=== PATIENT | male | born 1980 | race Hispanic/Latino ===

== ENCOUNTER 2023-01-02 22:52 | Inpatient (IN) | payer SELFPAY ==
[2023-01-03 00:02] LABS: Reflex for Review?? YES
[2023-01-03 00:03] LABS: Hemoglobin 4.5 g/dL (14.0-18.0); Mean Corpuscular HGB CONC 29.8 g/dL (32.0-36.0); Mean Corpuscular Hemoglobin 22.9 pg (27.0-31.0); Mean Corpuscular Volume 76.6 fl (78.0-98.0); Mean Platelet Volume 9.3 fL (7.4-10.4); Platelet Count 159 10x3/uL (130-400); RBC Distribution Width 19.1 % (11.5-14.5); Red Blood Cell (RBC) Count 1.97 mill/uL (4.70-6.10)
[2023-01-03 00:15] LABS: ALT (SGPT) 24 U/L (8-55); AST (SGOT) 47 U/L (5-34); Alkaline Phosphatase 329 U/L (40-110); Anion Gap 12 mmol/L (10-20); BUN (Urea Nitrogen) 7 mg/dL (8.9-20.6); Bilirubin, Total 2.8 mg/dL (0.2-1.2); Calc. Creatinine Clearance 0 mL/min (70-130); Calcium 7.6 mg/dL (7.8-10.44); Carbon Dioxide 19 mmol/L (22-29); Chloride 109 mmol/L (98-107); Estimated GFR 107; Globulin 6.5 g/dL (2.4-3.5); Glucose 145 mg/dL (70-105); Potassium 3.6 mmol/L (3.5-5.1); Protein, Total 8.5 g/dL (6.0-8.3); Sodium 136 mmol/L (136-145)
[2023-01-03 00:21] LABS: #Eosinphils 0.2 thou/uL (0.0-0.7); #Lymphocytes 1.2 thou/uL (1.20-3.40); #Monocytes 0.8 thou/uL (0.11-0.59); #Neutrophils 3.8 thou/uL (1.40-6.50); %Basophils 0.2 % (0.0-1.0); %Eosinophils 3.5 % (0.0-10.0); %Lymphocytes 20.7 % (21.0-51.0); %Monocytes 12.8 % (0.0-10.0); %Neutrophils 62.8 % (42.0-75.0)
[2023-01-03 00:22] LABS: Anisocytosis SLIGHT = 6-15 cells (100X) (0-5/hpf); Hypochromia SLIGHT = 6-15 cells (100X) (0-5/hpf); MDiff Complete? YES; Microcytosis SLIGHT = 6-15 cells (100X) (0-5/hpf); Rouleaux Formation SLIGHT = 1-5 cells (100X) (None Seen)
[2023-01-03 00:27] LABS: Bilirubin Negative (Negative); Blood, Urine Negative (Negative); Clarity Clear (Clear); Glucose, Urine (Dipstick) Normal (Negative); Ketone, Urine Trace mg/dL (Negative); Leukocyte Negative Leu/uL (Negative); Nitrite Negative (Negative); Protein, Urine (Dipstick) 10 mg/dL (Neg-Trace); Urobilinogen 12 mg/dL (Less than 2); pH, Urine 6.5 (5.0-9.0)
[2023-01-03] MEDS ORDERED: Senokot S 8.6-50 MG TAB PO PRN (01:47)
[2023-01-03] MEDS ORDERED: Calcium Carbonate 500 MG ChewTAB PO PRN (01:47)
[2023-01-03] MEDS ORDERED: Ondansetron ODT 4 MG TAB PO PRN (01:49)
[2023-01-03] MEDS ORDERED: Lorazepam 1 MG TAB PO PRN (01:49)
[2023-01-03] MEDS ORDERED: Lorazepam 2 MG/ML VIAL IM PRN (01:49)
[2023-01-03] MEDS ORDERED: Electrolyte Replacement Protocol 1 EACH FS SCH (02:00)
[2023-01-03 02:10] LABS: INR-International Normal Ratio 1.7; PTT 44.8 sec (22.9-36.1); Prothrombin Time 20.6 sec (12.0-14.7)
[2023-01-03 02:19] LABS: Cardiac Risk 8.7 (Less than 4.5); Cholesterol 104 mg/dl (< 200 Desired); HDL Cholesterol 12 mg/dL (>60 Neg Risk); LDL Cholesterol, Calculated 74 mg/dL; Magnesium 1.7 mg/dL (1.6-2.6); Phosphorus 3.4 mg/dL (2.3-4.7); Triglycerides 92 mg/dL (Less than 150)
[2023-01-03 03:42] VITALS: BMI 27.9
[2023-01-03] MEDS: Lorazepam 1 MG TAB PO SCH ×3 (04:08→14:25)
[2023-01-03] MEDS: Thiamine HCl 200 MG/2 ML VIAL SLOW IVP SCH (04:08)
[2023-01-03] MEDS: Acetaminophen 325 MG TAB PO PRN ×2 (05:13→09:07)
[2023-01-03] MEDS: Albumin 25% 25 GM/100 ML BOT IVPB SCH ×4 (05:14→23:25)
[2023-01-03] MEDS ORDERED: Magnesium 2 GM/50 ML(in water) 2 GM in Premix Bag 1 BAG IVPB SCH (08:00)
[2023-01-03] MEDS: Multivit, Therapeutic 1 TAB PO SCH (08:52)
[2023-01-03] MEDS: Folic Acid 1 MG TAB PO SCH (08:52)
[2023-01-03] MEDS ORDERED: Pantoprazole 40 MG VIAL IVP SCH (09:00)
[2023-01-03] MEDS ORDERED: Furosemide 40 MG TAB PO SCH (11:00)
[2023-01-03] MEDS ORDERED: Spironolactone 100 MG TAB PO SCH (11:00)
[2023-01-03] MEDS: hydrALAZINE 20 MG/ML VIAL SLOW IVP PRN (14:34)
[2023-01-03 15:44] LABS: #Eosinphils 0.1 thou/uL (0.0-0.7); #Monocytes 0.6 thou/uL (0.11-0.59); #Neutrophils 3.8 thou/uL (1.40-6.50); %Basophils 0.8 % (0.0-1.0); %Eosinophils 1.4 % (0.0-10.0); %Lymphocytes 18.3 % (21.0-51.0); %Monocytes 10.6 % (0.0-10.0); %Neutrophils 68.9 % (42.0-75.0); Hemoglobin 6.7 g/dL (14.0-18.0); Mean Corpuscular HGB CONC 31.2 g/dL (32.0-36.0); Mean Corpuscular Hemoglobin 25.6 pg (27.0-31.0); Mean Corpuscular Volume 82.1 fl (78.0-98.0); Mean Platelet Volume 9.1 fL (7.4-10.4); Platelet Count 138 10x3/uL (130-400); RBC Distribution Width 19.3 % (11.5-14.5); Red Blood Cell (RBC) Count 2.61 mill/uL (4.70-6.10); White Blood Cell (WBC) Count 5.6 10x3/uL (4.8-10.8)
[2023-01-03 16:10] LABS: ALT (SGPT) 20 U/L (8-55); AST (SGOT) 38 U/L (5-34); Albumin 2.6 g/dL (3.5-5.0); Alkaline Phosphatase 283 U/L (40-110); Anion Gap 10 mmol/L (10-20); BUN (Urea Nitrogen) 7 mg/dL (8.9-20.6); Bilirubin, Total 7.7 mg/dL (0.2-1.2); Calc. Creatinine Clearance 152 mL/min (70-130); Carbon Dioxide 21 mmol/L (22-29); Chloride 109 mmol/L (98-107); Estimated GFR 115; Globulin 5.8 g/dL (2.4-3.5); Glucose 121 mg/dL (70-105); Potassium 3.4 mmol/L (3.5-5.1); Protein, Total 8.4 g/dL (6.0-8.3); Sodium 137 mmol/L (136-145)
[2023-01-03] MEDS ORDERED: cefTRIAXone\\ROCEPHIN 1 GM in Sodium Chloride 0.9% 100 ML IVPB SCH (16:15)
[2023-01-03 17:29] LABS: Amphetamine Not Detected (NotDetected); Barbiturates Screen Not Detected (NotDetected); Benzodiazepine Screen Not Detected (NotDetected); Cocaine Metabolite Screen Detected (NotDetected); Methadone Not Detected (NotDetected); Methamphetamine Not Detected (NotDetected); Opiate Screen Not Detected (NotDetected); Oxycodone Screen Not Detected (NotDetected); Phencyclidine (PCP) Not Detected (NotDetected); THC/Cannabinoid Screen Not Detected (NotDetected); Tricyclic Screen Not Detected (NotDetected)
[2023-01-03] MEDS ORDERED: Lorazepam 2 MG/ML VIAL SLOW IVP SCH ×2 (18:15→19:00)
[2023-01-03 18:18] LABS: ALT (SGPT) 20 U/L (8-55); AST (SGOT) 40 U/L (5-34); Albumin 2.7 g/dL (3.5-5.0); Alkaline Phosphatase 304 U/L (40-110); Bilirubin, Direct 5.2 mg/dL (0.1-0.3); Protein, Total 8.9 g/dL (6.0-8.3)
[2023-01-03] MEDS: Sodium Chloride 0.9% 1,000 ML IV SCH (18:29)
[2023-01-03] MEDS ORDERED: Lorazepam 2 MG/ML VIAL SLOW IVP PRN (22:17)
[2023-01-03] MEDS: Potassium Chloride 20 MEQ in Premix Bag 1 BAG IVPB SCH (23:24)
[2023-01-04] MEDS: hydrALAZINE 20 MG/ML VIAL SLOW IVP PRN (01:10)
[2023-01-04] MEDS ORDERED: Lorazepam 2 MG/ML VIAL SLOW IVP SCH ×2 (01:15→03:15)
[2023-01-04] MEDS: Potassium Chloride 20 MEQ in Premix Bag 1 BAG IVPB SCH (01:16)
[2023-01-04] MEDS ORDERED: Lorazepam 2 MG/ML VIAL SLOW IVP PRN ×4 (01:19)
[2023-01-04] MEDS ORDERED: Ondansetron PF 4 MG/2 ML Vial IVP PRN (01:24)
[2023-01-04] MEDS ORDERED: Lorazepam 1 MG TAB PO PRN (01:49)
[2023-01-04 03:12] LABS: #Eosinphils 0.2 thou/uL (0.0-0.7); #Lymphocytes 1.2 thou/uL (1.20-3.40); #Monocytes 0.7 thou/uL (0.11-0.59); #Neutrophils 4.1 thou/uL (1.40-6.50); %Basophils 0.7 % (0.0-1.0); %Eosinophils 2.8 % (0.0-10.0); %Lymphocytes 19.6 % (21.0-51.0); %Monocytes 11.1 % (0.0-10.0); %Neutrophils 65.9 % (42.0-75.0); Mean Corpuscular HGB CONC 31.7 g/dL (32.0-36.0); Mean Corpuscular Hemoglobin 25.8 pg (27.0-31.0); Mean Corpuscular Volume 81.4 fl (78.0-98.0); Mean Platelet Volume 9.4 fL (7.4-10.4); Platelet Count 146 10x3/uL (130-400); RBC Distribution Width 19.4 % (11.5-14.5); Red Blood Cell (RBC) Count 2.69 mill/uL (4.70-6.10); White Blood Cell (WBC) Count 6.3 10x3/uL (4.8-10.8)
[2023-01-04] MEDS: Thiamine HCl 200 MG/2 ML VIAL SLOW IVP SCH (03:12)
[2023-01-04 03:49] LABS: Iron 226 ug/dL (65-175); Iron Binding Capacity, Total 208 mcg/dL (261-462); Magnesium 1.6 mg/dL (1.6-2.6); Phosphorus 2.6 mg/dL (2.3-4.7)
[2023-01-04 04:04] LABS: HBSAg Index 0.26 S/CO (0-0.99); Hep B Surf Ag Non-Reactive S/CO (NonReactive)
[2023-01-04 04:05] LABS: Hep C IgG Ab Non-Reactive S/CO (NonReactive); Hep C Index 0.36 S/CO (0-0.79)
[2023-01-04 04:07] LABS: HBCM Index 0.21 S/CO (0-0.79); Hepatitis B Core IgM Abs Non-Reactive S/CO (NonReactive)
[2023-01-04 04:08] LABS: Hep A IgM AB Reactive S/CO (NonReactive); Hep A IgM S/CO 1.36 S/CO (0-0.79)
[2023-01-04 04:17] LABS: Ferritin 130.93 ng/mL (22-322)
[2023-01-04] MEDS ORDERED: cefTRIAXone\\ROCEPHIN 1 GM in Sodium Chloride 0.9% 100 ML IVPB SCH (05:00)
[2023-01-04] MEDS: cefTRIAXone\\ROCEPHIN 1 GM in Sodium Chloride 0.9% 100 ML IVPB SCH (05:18)
[2023-01-04] MEDS: Lorazepam 2 MG/ML VIAL SLOW IVP SCH ×3 (05:33→17:05)
[2023-01-04] MEDS ORDERED: Lorazepam 1 MG TAB PO SCH (06:00)
[2023-01-04] MEDS ORDERED: Furosemide 40 MG TAB PO SCH (07:30)
[2023-01-04] MEDS ORDERED: Magnesium 2 GM/50 ML(in water) 2 GM in Premix Bag 1 BAG IVPB SCH (08:00)
[2023-01-04] MEDS ORDERED: Spironolactone 100 MG TAB PO SCH (08:00)
[2023-01-04 08:41] LABS: #Eosinphils 0.1 thou/uL (0.0-0.7); #Monocytes 0.7 thou/uL (0.11-0.59); #Neutrophils 5.1 thou/uL (1.40-6.50); %Basophils 0.2 % (0.0-1.0); %Neutrophils 74.8 % (42.0-75.0); Hemoglobin 6.8 g/dL (14.0-18.0); Mean Corpuscular HGB CONC 30.6 g/dL (32.0-36.0); Mean Corpuscular Hemoglobin 25.1 pg (27.0-31.0); Mean Platelet Volume 9.6 fL (7.4-10.4); Platelet Count 145 10x3/uL (130-400); RBC Distribution Width 19.7 % (11.5-14.5); Red Blood Cell (RBC) Count 2.73 mill/uL (4.70-6.10); White Blood Cell (WBC) Count 6.8 10x3/uL (4.8-10.8)
[2023-01-04] MEDS: Folic Acid 1 MG TAB PO SCH (09:03)
[2023-01-04] MEDS: Multivit, Therapeutic 1 TAB PO SCH (09:03)
[2023-01-04] MEDS: Sodium Chloride 0.9% 1,000 ML IV SCH (09:03)
[2023-01-04] MEDS: Pantoprazole 40 MG VIAL IVP SCH (09:03)
[2023-01-04 10:47] LABS: Syphilis Antibody Nonreactive (Nonreactive); Syphilis Antibody Index 0.14 S/CO (<1.00 Non-Reactive)
[2023-01-04 12:48] LABS: #Eosinphils 0.1 thou/uL (0.0-0.7); #Monocytes 0.9 thou/uL (0.11-0.59); #Neutrophils 6.2 thou/uL (1.40-6.50); %Basophils 0.5 % (0.0-1.0); %Eosinophils 0.8 % (0.0-10.0); %Lymphocytes 12.4 % (21.0-51.0); %Monocytes 11.2 % (0.0-10.0); %Neutrophils 75.1 % (42.0-75.0); Hemoglobin 6.7 g/dL (14.0-18.0); Mean Corpuscular HGB CONC 30.3 g/dL (32.0-36.0); Mean Corpuscular Hemoglobin 24.8 pg (27.0-31.0); Mean Corpuscular Volume 81.9 fl (78.0-98.0); Platelet Count 135 10x3/uL (130-400); RBC Distribution Width 19.8 % (11.5-14.5); Red Blood Cell (RBC) Count 2.69 mill/uL (4.70-6.10); White Blood Cell (WBC) Count 8.3 10x3/uL (4.8-10.8)
[2023-01-04] MEDS: Folic Acid 1 MG, Thiamine HCl 100 MG in Dextrose 5 %-0.45 % NaCl 1,000 ML FS SCH (17:06)
[2023-01-04 21:06] LABS: #Eosinphils 0.1 thou/uL (0.0-0.7); #Lymphocytes 1.3 thou/uL (1.20-3.40); #Monocytes 0.9 thou/uL (0.11-0.59); #Neutrophils 5.6 thou/uL (1.40-6.50); %Basophils 0.5 % (0.0-1.0); %Lymphocytes 16.1 % (21.0-51.0); %Monocytes 11.3 % (0.0-10.0); %Neutrophils 71.1 % (42.0-75.0); Hemoglobin 7.2 g/dL (14.0-18.0); Mean Corpuscular HGB CONC 32.3 g/dL (32.0-36.0); Mean Corpuscular Hemoglobin 26.7 pg (27.0-31.0); Mean Corpuscular Volume 82.8 fl (78.0-98.0); Mean Platelet Volume 8.9 fL (7.4-10.4); Platelet Count 131 10x3/uL (130-400); RBC Distribution Width 19.5 % (11.5-14.5); Red Blood Cell (RBC) Count 2.69 mill/uL (4.70-6.10); White Blood Cell (WBC) Count 7.8 10x3/uL (4.8-10.8)
[2023-01-05] MEDS: Lorazepam 2 MG/ML VIAL SLOW IVP SCH ×2 (00:01→06:04)
[2023-01-05 01:32] LABS: #Basophils 0.1 thou/uL (0.0-0.2); #Eosinphils 0.1 thou/uL (0.0-0.7); #Lymphocytes 1.6 thou/uL (1.20-3.40); #Neutrophils 5.6 thou/uL (1.40-6.50); %Basophils 0.7 % (0.0-1.0); %Eosinophils 1.6 % (0.0-10.0); %Lymphocytes 18.6 % (21.0-51.0); %Monocytes 11.5 % (0.0-10.0); %Neutrophils 67.6 % (42.0-75.0); Hemoglobin 7.6 g/dL (14.0-18.0); Mean Corpuscular Hemoglobin 26.8 pg (27.0-31.0); Mean Corpuscular Volume 83.6 fl (78.0-98.0); Platelet Count 140 10x3/uL (130-400); RBC Distribution Width 19.6 % (11.5-14.5); Red Blood Cell (RBC) Count 2.84 mill/uL (4.70-6.10); White Blood Cell (WBC) Count 8.3 10x3/uL (4.8-10.8)
[2023-01-05] MEDS ORDERED: Lorazepam 1 MG TAB PO PRN ×2 (01:49→02:00)
[2023-01-05] MEDS ORDERED: Lorazepam 0.5 MG TAB PO SCH (02:00)
[2023-01-05] MEDS ORDERED: Lorazepam 2 MG/ML VIAL SLOW IVP PRN (03:08)
[2023-01-05] MEDS: Sodium Chloride 0.9% 1,000 ML IV SCH ×2 (04:08→09:21)
[2023-01-05] MEDS: Thiamine HCl 200 MG/2 ML VIAL SLOW IVP SCH (04:09)
[2023-01-05 04:27] LABS: ALT (SGPT) 18 U/L (8-55); AST (SGOT) 43 U/L (5-34); Albumin 2.6 g/dL (3.5-5.0); Alkaline Phosphatase 251 U/L (40-110); Anion Gap 10 mmol/L (10-20); BUN (Urea Nitrogen) 5 mg/dL (8.9-20.6); Bilirubin, Total 5.9 mg/dL (0.2-1.2); Calc. Creatinine Clearance 174 mL/min (70-130); Carbon Dioxide 19 mmol/L (22-29); Chloride 108 mmol/L (98-107); Estimated GFR 120; Globulin 5.3 g/dL (2.4-3.5); Glucose 115 mg/dL (70-105); Magnesium 1.5 mg/dL (1.6-2.6); Phosphorus 2.9 mg/dL (2.3-4.7); Potassium 3.5 mmol/L (3.5-5.1); Protein, Total 7.9 g/dL (6.0-8.3); Sodium 133 mmol/L (136-145)
[2023-01-05] MEDS ORDERED: Lorazepam 1 MG TAB PO SCH (06:00)
[2023-01-05] MEDS: cefTRIAXone\\ROCEPHIN 1 GM in Sodium Chloride 0.9% 100 ML IVPB SCH (06:05)
[2023-01-05] MEDS: Pantoprazole 40 MG VIAL IVP SCH (07:40)
[2023-01-05] MEDS ORDERED: Magnesium 2 GM/50 ML(in water) 2 GM in Premix Bag 1 BAG IVPB SCH (08:00)
[2023-01-05] MEDS ORDERED: Furosemide 40 MG/4 ML VIAL ONE (08:03)
[2023-01-05] MEDS ORDERED: Sodium Bicarb 50 MEQ/50 ML VIAL ONE (08:08)
[2023-01-05] MEDS ORDERED: Sodium Bicarb 50 MEQ/50 ML Abboject 8.4% SYRINGE IVP SCH (08:15)
[2023-01-05] MEDS ORDERED: Furosemide 100 MG/10 ML VIAL SLOW IVP SCH (08:15)
[2023-01-05 08:30] LABS: Actual Bicarbonate (HCO3a) 21.8 mEq/L (22-28); Base Excess (BEa) -0.5 mEq/L (-2.0 to +3.0); CO2 Tension 26.8 mmHg (35.0-45.0); Calcium, Ionized (arterial) 1.09 mmol/L (1.12-1.30); Carboxyhemoglobin (COHb) 1.8 gm% (0.0-3.0); Hematocrit-ABG 24 % (42.0-52.0); Hemoglobin (Hb) 8.1 g/dL (14.0-18.0); O2 Tension (PaO2), arterial 77.8 mmHg (80.0-100.0); Potassium - ABG Lab 3.37 mmol/L (3.70-5.30); pH, Arterial 7.528 (7.35-7.45)
[2023-01-05 08:32] LABS: Puncture Site Right Brachial
[2023-01-05] MEDS ORDERED: Sodium Bicarb 50 MEQ/50 ML VIAL IVP SCH (08:45)
[2023-01-05] MEDS: Multivit, Therapeutic 1 TAB PO SCH (09:22)
[2023-01-05] MEDS: Folic Acid 1 MG TAB PO SCH (09:22)
[2023-01-05] MEDS: Folic Acid 1 MG, Thiamine HCl 100 MG in Dextrose 5 %-0.45 % NaCl 1,000 ML FS SCH (09:23)
[2023-01-05] MEDS: Lorazepam 2 MG/ML VIAL SLOW IVP PRN (12:26)
[2023-01-05] MEDS: Furosemide 100 MG/10 ML VIAL SLOW IVP SCH (15:06)
[2023-01-06] MEDS: Lorazepam 2 MG/ML VIAL SLOW IVP PRN (01:27)
[2023-01-06] MEDS ORDERED: Lorazepam 0.5 MG TAB PO PRN (01:49)
[2023-01-06] MEDS ORDERED: Lorazepam 1 MG TAB PO PRN (02:00)
[2023-01-06] MEDS ORDERED: Lorazepam 2 MG/ML VIAL SLOW IVP PRN (03:09)
[2023-01-06 04:14] LABS: #Eosinphils 0.2 thou/uL (0.0-0.7); #Lymphocytes 1.1 thou/uL (1.20-3.40); #Monocytes 0.7 thou/uL (0.11-0.59); #Neutrophils 3.4 thou/uL (1.40-6.50); %Basophils 0.8 % (0.0-1.0); %Eosinophils 3.8 % (0.0-10.0); %Lymphocytes 19.5 % (21.0-51.0); %Neutrophils 62.8 % (42.0-75.0); Hemoglobin 7.8 g/dL (14.0-18.0); Mean Corpuscular HGB CONC 30.8 g/dL (32.0-36.0); Mean Corpuscular Volume 84.4 fl (78.0-98.0); Mean Platelet Volume 9.9 fL (7.4-10.4); Platelet Count 122 10x3/uL (130-400); RBC Distribution Width 20.5 % (11.5-14.5); Red Blood Cell (RBC) Count 3.01 mill/uL (4.70-6.10); White Blood Cell (WBC) Count 5.4 10x3/uL (4.8-10.8)
[2023-01-06 04:34] LABS: ALT (SGPT) 16 U/L (8-55); AST (SGOT) 39 U/L (5-34); Albumin 2.2 g/dL (3.5-5.0); Alkaline Phosphatase 228 U/L (40-110); Anion Gap 9 mmol/L (10-20); BUN (Urea Nitrogen) 7 mg/dL (8.9-20.6); Bilirubin, Total 4.7 mg/dL (0.2-1.2); Calc. Creatinine Clearance 179 mL/min (70-130); Carbon Dioxide 22 mmol/L (22-29); Chloride 106 mmol/L (98-107); Estimated GFR 121; Globulin 5.1 g/dL (2.4-3.5); Glucose 97 mg/dL (70-105); Potassium 3.4 mmol/L (3.5-5.1); Protein, Total 7.3 g/dL (6.0-8.3); Sodium 134 mmol/L (136-145)
[2023-01-06] MEDS: Furosemide 100 MG/10 ML VIAL SLOW IVP SCH ×2 (05:28→15:33)
[2023-01-06] MEDS: cefTRIAXone\\ROCEPHIN 1 GM in Sodium Chloride 0.9% 100 ML IVPB SCH (05:28)
[2023-01-06] MEDS ORDERED: Potassium Chloride 20 MEQ TAB PO SCH (06:00)
[2023-01-06] MEDS: Potassium Chloride 20 MEQ in Premix Bag 1 BAG IVPB SCH ×2 (06:09→08:14)
[2023-01-06] MEDS: Folic Acid 1 MG TAB PO SCH (08:14)
[2023-01-06] MEDS: Pantoprazole 40 MG VIAL IVP SCH (08:14)
[2023-01-06] MEDS: Multivit, Therapeutic 1 TAB PO SCH (08:15)
[2023-01-06] MEDS: Thiamine 100 MG TAB PO SCH (08:15)
[2023-01-06] MEDS ORDERED: Lidocaine 1% PF 5 ML VIAL ONE (09:34)
[2023-01-06] MEDS ORDERED: Sodium Bicarbonate 2.5 MEQ/5 ML VIAL ONE (09:34)
[2023-01-06 11:18] LABS: Potassium 3.9 mmol/L (3.5-5.1)
[2023-01-06 12:28] LABS: RBC Count-Automated (BF) 201 /cu.mm; WBC/Nucleated-Auto (BF) 123 /cu.mm
[2023-01-06 12:35] LABS: BF Color Yellow; Body Fluid Source Ascites Body Fluid; Clarity Hazy (Clear); Tube # EDTA
[2023-01-06 13:15] LABS: BF Segmented Neutrophils 27 %; Cell Count Non Hematic 57 %; Lymphocytes 16 %
[2023-01-06 15:41] LABS: ANA Symphony (Qualitative) Equivocal: See Note (Negative); CENP IgG Antibody 1.5 EliAU/mL (<7 Negative); EliA Vaculitis New Method **** NEW METHOD ****; Jo-1 IgG Antibody 0.8 EliAU/mL (<7 Negative); Mitochondrial Ab 3.4 U/mL (<4 Negative); RNP70 IgG Antibody 0.8 EliAU/mL (<7 Negative); SSA/Ro IgG Antibody 1.3 EliAU/mL (<7 Negative); SSB/La IgG Antibody 1.2 EliAU/mL (<7 Negative); Scleroderma-70 IgG Antibody 2.3 EliAU/mL (<7 Negative); Smith D IgG Antibody 7.4 EliAU/mL (<7 Negative); dsDNA IgG Antibody 3.5 IU/mL (<10 Negative)
[2023-01-07] MEDS ORDERED: Lorazepam 2 MG/ML VIAL SLOW IVP PRN (03:07)
[2023-01-07 04:39] LABS: ALT (SGPT) 17 U/L (8-55); AST (SGOT) 34 U/L (5-34); Albumin 2.1 g/dL (3.5-5.0); Alkaline Phosphatase 221 U/L (40-110); Anion Gap 12 mmol/L (10-20); BUN (Urea Nitrogen) 11 mg/dL (8.9-20.6); Bilirubin, Total 4.2 mg/dL (0.2-1.2); Calc. Creatinine Clearance 159 mL/min (70-130); Calcium 7.9 mg/dL (7.8-10.44); Carbon Dioxide 21 mmol/L (22-29); Chloride 104 mmol/L (98-107); Estimated GFR 117; Globulin 4.9 g/dL (2.4-3.5); Glucose 82 mg/dL (70-105); Potassium 3.1 mmol/L (3.5-5.1); Sodium 134 mmol/L (136-145)
[2023-01-07 04:40] LABS: #Eosinphils 0.2 thou/uL (0.0-0.7); #Lymphocytes 1.4 thou/uL (1.20-3.40); #Monocytes 0.6 thou/uL (0.11-0.59); #Neutrophils 2.7 thou/uL (1.40-6.50); %Basophils 0.6 % (0.0-1.0); %Eosinophils 3.8 % (0.0-10.0); %Lymphocytes 28.8 % (21.0-51.0); %Monocytes 12.4 % (0.0-10.0); %Neutrophils 54.4 % (42.0-75.0); Hemoglobin 8.1 g/dL (14.0-18.0); Mean Corpuscular HGB CONC 32.2 g/dL (32.0-36.0); Mean Corpuscular Hemoglobin 27.1 pg (27.0-31.0); Mean Corpuscular Volume 84.4 fl (78.0-98.0); Mean Platelet Volume 10.2 fL (7.4-10.4); Platelet Count 129 10x3/uL (130-400); RBC Distribution Width 21.4 % (11.5-14.5); Red Blood Cell (RBC) Count 2.97 mill/uL (4.70-6.10); White Blood Cell (WBC) Count 4.9 10x3/uL (4.8-10.8)
[2023-01-07] MEDS: cefTRIAXone\\ROCEPHIN 1 GM in Sodium Chloride 0.9% 100 ML IVPB SCH (05:37)
[2023-01-07] MEDS: Furosemide 100 MG/10 ML VIAL SLOW IVP SCH (05:38)
[2023-01-07] MEDS ORDERED: Potassium Chloride 20 MEQ TAB PO SCH (06:00)
[2023-01-07] MEDS ORDERED: Lorazepam 0.5 MG TAB PO PRN (06:00)
[2023-01-07] MEDS: Potassium Chloride 20 MEQ in Premix Bag 1 BAG IVPB SCH ×2 (06:27→08:02)
[2023-01-07] MEDS: Pantoprazole 40 MG VIAL IVP SCH (08:16)
[2023-01-07] MEDS: Multivit, Therapeutic 1 TAB PO SCH (08:16)
[2023-01-07] MEDS: Folic Acid 1 MG TAB PO SCH (08:17)
[2023-01-07] MEDS: Thiamine 100 MG TAB PO SCH (08:17)
[2023-01-07] MEDS: prednisoLONE 10 MG ODT TAB PO SCH (09:08)
[2023-01-08] MEDS: cefTRIAXone\\ROCEPHIN 1 GM in Sodium Chloride 0.9% 100 ML IVPB SCH (06:03)
[2023-01-08] MEDS: prednisoLONE 10 MG ODT TAB PO SCH (08:47)
[2023-01-08] MEDS: Rifaximin 550 MG TAB PO SCH ×2 (08:47→20:46)
[2023-01-08] MEDS: Thiamine 100 MG TAB PO SCH (08:47)
[2023-01-08] MEDS: Folic Acid 1 MG TAB PO SCH (08:47)
[2023-01-08] MEDS: Multivit, Therapeutic 1 TAB PO SCH (08:47)
[2023-01-08] MEDS: Pantoprazole 40 MG VIAL IVP SCH (08:48)
[2023-01-08] MEDS: Furosemide 100 MG/10 ML VIAL SLOW IVP SCH (08:48)
[2023-01-08 10:40] LABS: Mean Corpuscular HGB CONC 30.4 g/dL (32.0-36.0); Mean Corpuscular Hemoglobin 26.3 pg (27.0-31.0); Mean Corpuscular Volume 86.7 fl (78.0-98.0); Mean Platelet Volume 9.7 fL (7.4-10.4); Platelet Count 164 10x3/uL (130-400); RBC Distribution Width 23.4 % (11.5-14.5); Red Blood Cell (RBC) Count 3.41 mill/uL (4.70-6.10)
[2023-01-08 10:59] LABS: Anisocytosis MODERATE=16-30 cells (100X) (0-5/hpf); Band 2 % (5-11); Hypochromia SLIGHT = 6-15 cells (100X) (0-5/hpf); Lymphocytes 17 % (21-51); MDiff Complete? YES; Monocytes 5 % (0-10); Neutrophil 76 % (42-75); Polychromasia SLIGHT = 2-3 cells (100X) (0-2/hpf)
[2023-01-08 11:25] LABS: ALT (SGPT) 24 U/L (8-55); AST (SGOT) 55 U/L (5-34); Albumin 2.7 g/dL (3.5-5.0); Alkaline Phosphatase 283 U/L (40-110); Anion Gap 11 mmol/L (10-20); BUN (Urea Nitrogen) 9 mg/dL (8.9-20.6); Bilirubin, Total 4.3 mg/dL (0.2-1.2); Calc. Creatinine Clearance 150 mL/min (70-130); Calcium 8.4 mg/dL (7.8-10.44); Carbon Dioxide 22 mmol/L (22-29); Chloride 104 mmol/L (98-107); Estimated GFR 115; Globulin 6.4 g/dL (2.4-3.5); Glucose 156 mg/dL (70-105); Potassium 3.2 mmol/L (3.5-5.1); Protein, Total 9.1 g/dL (6.0-8.3); Sodium 134 mmol/L (136-145)
[2023-01-08 11:26] LABS: Hep A IgM AB Reactive S/CO (NonReactive); Hep A IgM S/CO 1.63 S/CO (0-0.79)
[2023-01-08] MEDS ORDERED: Potassium Chloride 20 MEQ TAB PO SCH (12:15)
[2023-01-09] MEDS: cefTRIAXone\\ROCEPHIN 1 GM in Sodium Chloride 0.9% 100 ML IVPB SCH (06:45)
[2023-01-09] MEDS: Folic Acid 1 MG TAB PO SCH (09:19)
[2023-01-09] MEDS: Thiamine 100 MG TAB PO SCH (09:19)
[2023-01-09] MEDS: Rifaximin 550 MG TAB PO SCH ×2 (09:19→23:02)
[2023-01-09] MEDS: Furosemide 100 MG/10 ML VIAL SLOW IVP SCH (09:20)
[2023-01-09] MEDS: Pantoprazole 40 MG VIAL IVP SCH (09:20)
[2023-01-09] MEDS: Multivit, Therapeutic 1 TAB PO SCH (09:20)
[2023-01-09] MEDS ORDERED: Spironolactone 100 MG TAB PO SCH (15:15)
[2023-01-10] MEDS: cefTRIAXone\\ROCEPHIN 1 GM in Sodium Chloride 0.9% 100 ML IVPB SCH (05:50)
[2023-01-10 08:07] LABS: #Eosinphils 0.2 thou/uL (0.0-0.7); #Lymphocytes 1.3 thou/uL (1.20-3.40); #Monocytes 0.6 thou/uL (0.11-0.59); #Neutrophils 2.8 thou/uL (1.40-6.50); %Basophils 0.6 % (0.0-1.0); %Eosinophils 4.4 % (0.0-10.0); %Lymphocytes 25.2 % (21.0-51.0); %Monocytes 12.4 % (0.0-10.0); %Neutrophils 57.4 % (42.0-75.0); Hemoglobin 8.8 g/dL (14.0-18.0); Mean Corpuscular HGB CONC 30.8 g/dL (32.0-36.0); Mean Corpuscular Volume 87.7 fl (78.0-98.0); Mean Platelet Volume 10.3 fL (7.4-10.4); Platelet Count 135 10x3/uL (130-400); RBC Distribution Width 23.6 % (11.5-14.5); Red Blood Cell (RBC) Count 3.26 mill/uL (4.70-6.10); White Blood Cell (WBC) Count 4.9 10x3/uL (4.8-10.8)
[2023-01-10 08:58] LABS: ALT (SGPT) 32 U/L (8-55); AST (SGOT) 57 U/L (5-34); Albumin 2.4 g/dL (3.5-5.0); Alkaline Phosphatase 244 U/L (40-110); Anion Gap 11 mmol/L (10-20); BUN (Urea Nitrogen) 9 mg/dL (8.9-20.6); Bilirubin, Total 3.6 mg/dL (0.2-1.2); Calc. Creatinine Clearance 157 mL/min (70-130); Calcium 8.2 mg/dL (7.8-10.44); Carbon Dioxide 22 mmol/L (22-29); Chloride 105 mmol/L (98-107); Estimated GFR 116; Globulin 6.1 g/dL (2.4-3.5); Glucose 113 mg/dL (70-105); Protein, Total 8.5 g/dL (6.0-8.3); Sodium 135 mmol/L (136-145)
[2023-01-10] MEDS: Multivit, Therapeutic 1 TAB PO SCH (10:06)
[2023-01-10] MEDS: Furosemide 40 MG TAB PO SCH (10:06)
[2023-01-10] MEDS: Spironolactone 100 MG TAB PO SCH (10:06)
[2023-01-10] MEDS: Folic Acid 1 MG TAB PO SCH (10:07)
[2023-01-10] MEDS: Rifaximin 550 MG TAB PO SCH ×2 (10:07→22:04)
[2023-01-10] MEDS: Thiamine 100 MG TAB PO SCH (10:07)
[2023-01-10] MEDS: Pantoprazole 40 MG VIAL IVP SCH (10:08)
[2023-01-10] MEDS ORDERED: Potassium Chloride 20 MEQ TAB PO SCH (12:45)
[2023-01-10] MEDS ORDERED: Midazolam HCl 2 mg/2 ml Vial ONE (18:02)
[2023-01-10] MEDS ORDERED: Lidocaine 1% PF 5 ML VIAL ONE (18:18)
[2023-01-11] MEDS: cefTRIAXone\\ROCEPHIN 1 GM in Sodium Chloride 0.9% 100 ML IVPB SCH (06:39)
[2023-01-11 06:58] LABS: #Eosinphils 0.2 thou/uL (0.0-0.7); #Lymphocytes 1.1 thou/uL (1.20-3.40); #Monocytes 0.4 thou/uL (0.11-0.59); #Neutrophils 2.3 thou/uL (1.40-6.50); %Basophils 0.9 % (0.0-1.0); %Eosinophils 4.3 % (0.0-10.0); %Lymphocytes 27.2 % (21.0-51.0); %Monocytes 10.6 % (0.0-10.0); %Neutrophils 57.1 % (42.0-75.0); Hemoglobin 8.2 g/dL (14.0-18.0); Mean Corpuscular HGB CONC 31.1 g/dL (32.0-36.0); Mean Corpuscular Volume 86.8 fl (78.0-98.0); Mean Platelet Volume 10.4 fL (7.4-10.4); Platelet Count 124 10x3/uL (130-400); RBC Distribution Width 23.1 % (11.5-14.5); Red Blood Cell (RBC) Count 3.03 mill/uL (4.70-6.10); White Blood Cell (WBC) Count 4.1 10x3/uL (4.8-10.8)
[2023-01-11 07:14] LABS: INR-International Normal Ratio 1.8; Prothrombin Time 21.2 sec (12.0-14.7)
[2023-01-11 07:17] LABS: ALT (SGPT) 31 U/L (8-55); AST (SGOT) 50 U/L (5-34); Albumin 2.4 g/dL (3.5-5.0); Alkaline Phosphatase 227 U/L (40-110); Anion Gap 9 mmol/L (10-20); BUN (Urea Nitrogen) 9 mg/dL (8.9-20.6); Bilirubin, Total 3.9 mg/dL (0.2-1.2); Calc. Creatinine Clearance 174 mL/min (70-130); Calcium 8.1 mg/dL (7.8-10.44); Carbon Dioxide 23 mmol/L (22-29); Chloride 104 mmol/L (98-107); Estimated GFR 120; Globulin 5.8 g/dL (2.4-3.5); Glucose 84 mg/dL (70-105); Magnesium 1.4 mg/dL (1.6-2.6); Potassium 3.3 mmol/L (3.5-5.1); Protein, Total 8.2 g/dL (6.0-8.3); Sodium 133 mmol/L (136-145)
[2023-01-11] MEDS ORDERED: Potassium Chloride 20 MEQ TAB PO SCH (08:00)
[2023-01-11] MEDS ORDERED: Magnesium Sulfate In Water 4 GM in Premix Bag 1 BAG IVPB SCH (08:00)
[2023-01-11] MEDS: Multivit, Therapeutic 1 TAB PO SCH (08:16)
[2023-01-11] MEDS: Folic Acid 1 MG TAB PO SCH (08:16)
[2023-01-11] MEDS: Rifaximin 550 MG TAB PO SCH (08:16)
[2023-01-11] MEDS: Thiamine 100 MG TAB PO SCH (08:16)
[2023-01-11] MEDS: Spironolactone 100 MG TAB PO SCH (08:16)
[2023-01-11] MEDS: Furosemide 40 MG TAB PO SCH (08:16)
[2023-01-11] MEDS: Pantoprazole 40 MG VIAL IVP SCH (08:17)
[2023-01-11] MEDS ORDERED: Propranolol 10 MG TAB PO SCH ×2 (10:00→21:00)
[2023-01-11 12:59] VITALS: BP 122/77; TEMP 98.3
== END 2023-01-11 12:50 | disposition home or self-care (01) | DRG 432 ==
LOC: ERS 22:52 → 2SW 01-03 01:17 → IMCU/EMU 01-03 17:11 → T4-A 01-08 15:07
PROVIDERS: ADMIT Student in an Organized Health Care Education/Training Program; ATTEND Hospitalist
PROC: 30233N1 Transfusion of Nonautologous Red Blood Cells into Peripheral Vein, Percutaneous Approach (ICD-10-PCS; 2023-01-03)
PROC: 30233J1 Transfusion of Nonautologous Serum Albumin into Peripheral Vein, Percutaneous Approach (ICD-10-PCS; 2023-01-03)
PROC: 4A033R1 Measurement of Arterial Saturation, Peripheral, Percutaneous Approach (ICD-10-PCS; 2023-01-05)
PROC: 0W9G3ZZ Drainage of Peritoneal Cavity, Percutaneous Approach (ICD-10-PCS; 2023-01-06)
PROC: 0W9G3ZX Drainage of Peritoneal Cavity, Percutaneous Approach, Diagnostic (ICD-10-PCS; 2023-01-06)
PROC: 0DB68ZX Excision of Stomach, Via Natural or Artificial Opening Endoscopic, Diagnostic (ICD-10-PCS; principal; 2023-01-10)
PROC: 06L38CZ Occlusion of Esophageal Vein with Extraluminal Device, Via Natural or Artificial Opening Endoscopic (ICD-10-PCS; 2023-01-10)
DX: K70.31 Alcoholic cirrhosis of liver with ascites (principal); G93.41 Metabolic encephalopathy; F10.131 Alcohol abuse with withdrawal delirium; D68.9 Coagulation defect, unspecified; K76.6 Portal hypertension; I85.10 Secondary esophageal varices without bleeding; K25.9 Gastric ulcer, unspecified as acute or chronic, without hemorrhage or perforation; E83.51 Hypocalcemia; E88.09 Other disorders of plasma-protein metabolism, not elsewhere classified; E80.6 Other disorders of bilirubin metabolism; D50.9 Iron deficiency anemia, unspecified; K70.10 Alcoholic hepatitis without ascites; I10 Essential (primary) hypertension; K31.89 Other diseases of stomach and duodenum; E87.6 Hypokalemia; F14.10 Cocaine abuse, uncomplicated; Z79.899 Other long term (current) drug therapy; K29.70 Gastritis, unspecified, without bleeding
CPT/HCPCS: 36415; 36416; 36430; 49083; 71045; 74176; 76705; 80053; 80061; 80074; 80306; 80307; 81003; 82042; 82105; 82140; 82274; 82390; 82728; 82805; 83036; 83516; 83540; 83550; 83735; 83880; 84100; 84157; 85025; 85060; 85610; 85730; 86015; 86038; 86225; 86235; 86708; 86709; 86780; 86850; 86900; 86901; 87070; 87205; 88305; 88342; 89051; 93306; C9113; J0360; J0696; J1940; J2060; J2250; J3411; J3475; J3480; J3490; J7042; J7050; P9016; P9047

== ENCOUNTER 2023-05-28 13:26 | Outpatient (CLI) | payer OTHER | END 2023-05-28 13:27 | disposition home or self-care (01) | LOC: ULT 13:26 | PROVIDERS: ATTEND Physician Assistant Medical | DX: I85.00 Esophageal varices without bleeding (principal); K74.60 Unspecified cirrhosis of liver; D64.9 Anemia, unspecified; R16.1 Splenomegaly, not elsewhere classified; R93.2 Abnormal findings on diagnostic imaging of liver and biliary tract | CPT/HCPCS: 76705 ==

== ENCOUNTER 2023-11-15 09:00 | Outpatient (CLI) | payer OTHER, SELFPAY | END 2023-11-15 09:01 | disposition home or self-care (01) | LOC: SJX 09:00 | PROVIDERS: ATTEND Physician Assistant Medical | DX: K74.60 Unspecified cirrhosis of liver (principal); I10 Essential (primary) hypertension; I85.00 Esophageal varices without bleeding; D64.9 Anemia, unspecified; K76.6 Portal hypertension; R16.1 Splenomegaly, not elsewhere classified | CPT/HCPCS: 76705 ==

== ENCOUNTER 2024-06-28 10:41 | Outpatient (CLI) | payer OTHER ==
[2024-06-28] MEDS ORDERED: Magnevist 469MG/ML 20 ML VIAL ONE (11:14)
== END 2024-06-28 10:42 | disposition home or self-care (01) ==
LOC: MRI 10:41
PROVIDERS: ATTEND Physician Assistant Medical
DX: I85.00 Esophageal varices without bleeding (principal); K74.60 Unspecified cirrhosis of liver; R16.0 Hepatomegaly, not elsewhere classified
CPT/HCPCS: 74183